=== PATIENT | male | born 1995 | race Two or more races ===

== ENCOUNTER 2022-03-26 19:48 | Emergency (ER) | payer MEDICAID ==
[~2022-03-26] VITALS: Ht 177.8 cm; Wt 95.5 kg
[2022-03-27] MEDS ORDERED: SODIUM CHLORIDE 0.9% 2,000 ML IV ONE (00:30)
[2022-03-27 07:45] VITALS: BP 119/83
== END 2022-03-27 08:34 | disposition home or self-care (01) ==
LOC: EMS 19:50
DX: F10.229 Alcohol dependence with intoxication, unspecified (principal); Y90.8 Blood alcohol level of 240 mg/100 ml or more
CPT/HCPCS: 99283; 36415; 96360; G0480; J7030